=== PATIENT | female | born 1930 | race Caucasian/White ===

== ENCOUNTER 2018-08-15 11:14 | Day surgery (SDC) | payer MEDICARE ==
[~2018-08-15] VITALS: Ht 160 cm; Wt 56.2 kg
[~2018-08-15 11:14] MED LIST: FENTANYL PF 100 MCG/2ML ONE; MIDAZOLAM 1 MG/ML, 2ML ONE
[2018-08-15 11:53] VITALS: BP 143/80
[2018-08-15] MEDS ORDERED: ROPIvacaine/PF 0.5%, 30 ML ONE (11:53)
[2018-08-15] MEDS ORDERED: BUPIVACAINE/PF-EPI 0.5% 1:200K ONE (11:53)
[2018-08-15] MEDS ORDERED: MORPHINE SULFATE 4 MG/ML, 1ML IVPush PRN (12:00)
[2018-08-15] MEDS ORDERED: LABETALOL 5MG/ML, 20ML IV PRN (12:00)
[2018-08-15] MEDS ORDERED: FENTANYL PF 100 MCG/2ML IV PRN (12:00)
[2018-08-15] MEDS ORDERED: PROMETHAZINE 25 MG/ML, 1ML IV PRN (12:00)
[2018-08-15] MEDS ORDERED: ONDANSETRON 2MG/ML, 2ML IV PRN (12:00)
[2018-08-15] MEDS ORDERED: OXYcodone 5 MG/5 ML ORAL.SOL UDC PO PRN (12:00)
[2018-08-15] MEDS ORDERED: hydrALAzine 20 MG/ML, 1ML IV PRN (12:00)
[2018-08-15] MEDS ORDERED: HYDROcodone/APAP 7.5-325MG/15ML UDC PO PRN (12:00)
[2018-08-15] MEDS ORDERED: ACETAMINOPHEN 325 MG TABLET PO PRN (12:00)
[2018-08-15] MEDS ORDERED: LIDOCAINE 1%-EPI 1:100K, 30ML ONE (12:02)
[2018-08-15] MEDS ORDERED: [UNRECOGNIZED DRUG - OTHER] (12:14)
[2018-08-15] MEDS ORDERED: LEVO300T4 PO (12:14)
[2018-08-15] MEDS ORDERED: CARDIZEM (12:14)
[2018-08-15] MEDS ORDERED: CYAN500T18 PO (12:14)
[2018-08-15] MEDS ORDERED: VALA500T PO (12:14)
[2018-08-15] MEDS ORDERED: SIMV40TA3 PO (12:14)
[2018-08-15] MEDS ORDERED: XARELTO (12:14)
== END 2018-08-15 13:45 | disposition home or self-care (01) ==
LOC: OR 11:14
PROVIDERS: ATTEND Orthopaedic Surgery
DX: T84.84XA Pain due to internal orthopedic prosthetic devices, implants and grafts, initial encounter (principal); Y83.8 Other surgical procedures as the cause of abnormal reaction of the patient, or of later complication, without mention of misadventure at the time of the procedure; Y92.89 Other specified places as the place of occurrence of the external cause; Z96.642 Presence of left artificial hip joint
CPT/HCPCS: 20610; 73501; 77002; 87070; 87075; 87205; 89051; J3490; 76000; J2250; J2795; J3010